=== PATIENT | male | born 1970 | race Caucasian/White ===

== ENCOUNTER 2017-05-02 23:14 | Emergency (ER) | payer MEDICARE, MEDICAID ==
[~2017-05-02] VITALS: Ht 182.9 cm; Wt 136.5 kg
[2017-05-02 23:30] VITALS: BP 121/77
== END 2017-05-03 00:30 | disposition left against medical advice (07) ==
LOC: ER 23:21
DX: F41.9 Anxiety disorder, unspecified (principal); Z53.21 Procedure and treatment not carried out due to patient leaving prior to being seen by health care provider

== ENCOUNTER 2023-06-21 20:18 | Inpatient (IN) | payer MEDICARE, MEDICAID ==
[~2023-06-21] VITALS: Ht 182.9 cm; Wt 145.1 kg
[2023-06-21] MEDS: SODIUM CHLORIDE 0.9% 1,000 ML IVB ONE (20:45)
[2023-06-21] MEDS ORDERED: METOCLOPRAMIDE HCL 5MG/ml INJ 2ml VIAL IM ONE (21:00)
[2023-06-21 21:34] LABS: INR 1.13 (0.9-1.15); Partial Thromboplastin Time 26.4 SEC (24.5-34.5); Prothrombin Time 11.8 sec (9.3-11.8)
[2023-06-21 21:35] LABS: Basophils # (auto) 0.1 10 ^3/uL (0-0.2); Eosinophils # (auto) 0.2 10 ^3/uL (0-0.8); Eosinophils % (auto) 1.2 % (0.0-7.0); Hematocrit 59.2 % (41.0-53.0); Hemoglobin 20.3 g/dL (13.5-17.5); Lymphocytes # (auto) 0.5 10 ^3/uL (0.4-5.4); Lymphocytes % (auto) 3.4 % (10.0-50.0); Mean Corpuscular Hemoglobin 32.4 pg (28.0-32.0); Mean Corpuscular Hgb Conc. 34.3 g/dL (32.0-36.0); Mean Corpuscular Volume 94.5 fL (80.0-100.0); Monocytes # (auto) 0.6 10 ^3/uL (0-1.3); Monocytes % (auto) 4.5 % (0.0-12.0); Neutrophils # (auto) 12.6 10 ^3/uL (1.6-8.6); Neutrophils % (auto) 89.9 % (37.0-80.0); Red Blood Cells 6.26 10^6/uL (4.5-5.90); Red Cell Distribution Width 14.8 % (11.8-14.3)
[2023-06-21 21:38] LABS: Alanine Aminotransferase 59 U/L (7-40); Alkaline Phosphatase 53 U/L (46-116); Anion Gap 15 (5-15); Aspartate Aminotransferase 39 U/L (13-40); BUN/Creatinine Ratio 6.2 (10.0-20.0); Blood Alcohol < 3.0 mg/dL (<10); Blood Urea Nitrogen 12 mg/dL (9-23); Carbon Dioxide 20 mmol/L (20-30); Chloride 101 mmol/L (98-107); Glucose 154 mg/dL (74-106); Potassium 4.1 mmol/L (3.5-5.1); Sodium 136 mmol/L (136-145)
[2023-06-21 21:39] LABS: Bilirubin, Total 1.6 mg/dL (0.2-1.0); Total Protein 9.1 g/dL (5.7-8.2)
[2023-06-21 21:45] LABS: Magnesium 2.1 mg/dL (1.6-2.6)
[2023-06-22] VITALS (66 sets, daily range): BP systolic 29–264; BP diastolic 20–250; PULSE 71–123; RESP 17–38; TEMP 96.1–104.7; O2SAT 86–100
[2023-06-22] MEDS: SODIUM CHLORIDE 0.9% 3,000 ML IV ONE (00:18)
[2023-06-22] MEDS: ACETAMINOPHEN 650 MG RECT SUPP PR ONE (00:29)
[2023-06-22] MEDS: LORazepam 2MG/ML-1ML VIAL IV ONE (00:29)
[2023-06-22] MEDS: cefTRIAXone 1GM/50ML D5W 50 ML IV ONE (00:29)
[2023-06-22] MEDS: MIDAZOLAM HCL 5 MG/ML-1ML VIAL ONE (00:49)
[2023-06-22] MEDS: AMIODARONE BOLUS KIT 100 ML IV ONE ×2 (00:49→00:50)
[2023-06-22] MEDS: HEPARIN SODIUM (PORCINE) 5000 UNITS/ML 1ML VIAL ONE ×5 (00:50→11:41)
[2023-06-22] MEDS: AMIODARONE 450mg/250ml AE 250 ML IV ONE (00:50)
[2023-06-22] MEDS: MIDAZOLAM HCL 5 MG/ML-1ML VIAL IV ONE (00:50)
[2023-06-22] MEDS: HEPARIN SODIUM (PORCINE) 5000 UNITS/ML 1ML VIAL IV ONE ×2 (00:51→01:11)
[2023-06-22 00:53] LABS: Lactic Acid w/Reflex 5.3 mmol/L (0.4-2.0)
[2023-06-22] MEDS: AMIODARONE 450mg/250ml AE 250 ML IV SCH ×2 (00:57→07:00)
[2023-06-22] MEDS: ETOMIDATE (2MG/ML) 20ML VIAL IV ONE ×2 (01:04→01:10)
[2023-06-22] MEDS: SUCCINYLCHOLINE CHLORIDE 20 MG/ML 10ML VIAL IV ONE ×2 (01:04→01:11)
[2023-06-22] MEDS: PROPOFOL 100 ML IV SCH (01:10)
[2023-06-22] MEDS: MAGNESIUM SULFATE 1GM/100ML 100 ML IV ONE (01:11)
[2023-06-22] MEDS: MAGNESIUM SULFATE 1GM/100ML 100 ML IV SCH (01:16)
[2023-06-22] MEDS: PROPOFOL 100 ML IV ONE ×2 (01:16→10:50)
[2023-06-22] MEDS: ASPirin 300 MG RECTAL SUPP PR ONE (01:17)
[2023-06-22] MEDS: METOPROLOL TARTRATE 1MG/1ML-5ML VIAL IV ONE ×5 (01:20→11:21)
[2023-06-22] MEDS: fentaNYL Drip 2500mCg/250mlNS 250 ML IV ONE (01:21)
[2023-06-22] MEDS: MIDAZOLAM DRIP 50 mg/50mL 50 ML IV ONE (01:22)
[2023-06-22] MEDS: MIDAZOLAM DRIP 50 mg/50mL 50 ML IV SCH ×2 (01:27→03:45)
[2023-06-22] MEDS: ROCURONIUM 10MG/ML 10ML VIAL IV ONE (01:27)
[2023-06-22] MEDS: ALBUMIN 25% 50 ML IV ONE (01:32)
[2023-06-22] MEDS: ANGIOMAX 250 MG VIAL IV ONE (01:38)
[2023-06-22] MEDS: VERAPAMIL 2.5MG/ML INJ 2ML VIAL IV ONE (01:39)
[2023-06-22] MEDS: MIDAZOLAM HCL 2MG/2ML 2ml VIAL (1mg/ml) ONE (01:39)
[2023-06-22] MEDS: fentaNYL CITRATE 100 MCG/2 ML VL ONE (01:39)
[2023-06-22] MEDS: SODIUM CHL 0.9% 50 ML ONE (01:40)
[2023-06-22] MEDS: LIDOCAINE 2%HCL (LOCAL ANESTH.) INJ 20ML MDV ONE ×2 (01:40→10:14)
[2023-06-22] MEDS: IODIXANOL 320MG/ML 100ML BTL IV ONE ×3 (01:43→10:14)
[2023-06-22] MEDS: NOREPINEPHRINE 8 MG/250ML KIT 250 ML IV ONE (02:08)
[2023-06-22] MEDS: SODIUM BICARB 8.4% 50Meq/50ml SYR Vial IV ONE (02:30)
[2023-06-22] MEDS: PHENYLEPHRINE HCL 10 MG/ML VL ONE (02:31)
[2023-06-22] MEDS: ATROPINE SULF 1 MG/10ml SYR ONE (02:34)
[2023-06-22] MEDS: NOREPINEPHRINE 8 MG/250ML KIT 250 ML IV SCH (03:20)
[2023-06-22] MEDS: TICAGRELOR 90 MG TAB ONE (03:28)
[2023-06-22] MEDS: DOBUTamine 1000MCG/ML 250 ML IV ONE (03:41)
[2023-06-22] MEDS: DOBUTamine 1000MCG/ML 250 ML IV SCH (03:42)
[2023-06-22] MEDS ORDERED: ONDANSETRON HCL 4 MG/2 ML VIAL IV PRN (03:45)
[2023-06-22] MEDS ORDERED: MORPHINE SULFATE INJ 2 MG/ml SYRG IV PRN (03:45)
[2023-06-22] MEDS ORDERED: NITROGLYCERIN 0.4 MG SL TAB SL PRN (03:45)
[2023-06-22] MEDS: FUROSEMIDE 40 MG/4 ML VIAL IV ONE (04:00)
[2023-06-22] MEDS: fentaNYL Drip 2500mCg/250mlNS 250 ML IV SCH (04:02)
[2023-06-22 04:11] LABS: Basophils # (auto) 0.1 10 ^3/uL (0-0.2); Basophils % (auto) 0.4 % (0.0-2.0); Eosinophils # (auto) 0 10 ^3/uL (0-0.8); Eosinophils % (auto) 0.1 % (0.0-7.0); Hematocrit 55.1 % (41.0-53.0); Hemoglobin 18.3 g/dL (13.5-17.5); Lymphocytes # (auto) 0.3 10 ^3/uL (0.4-5.4); Lymphocytes % (auto) 2.6 % (10.0-50.0); Mean Corpuscular Hemoglobin 32.4 pg (28.0-32.0); Mean Corpuscular Hgb Conc. 33.2 g/dL (32.0-36.0); Mean Corpuscular Volume 97.7 fL (80.0-100.0); Monocytes # (auto) 0.8 10 ^3/uL (0-1.3); Neutrophils # (auto) 11.4 10 ^3/uL (1.6-8.6); Neutrophils % (auto) 90.9 % (37.0-80.0); Nucleated Red Blood Cells % 0.3 %; Red Blood Cells 5.64 10^6/uL (4.5-5.90); Red Cell Distribution Width 14.9 % (11.8-14.3); White Blood Cell 12.6 10^3/uL (4.4-10.8)
[2023-06-22 04:28] LABS: Base Excess -7.8 mmol/L (-2.0-2.0)
[2023-06-22 04:39] LABS: Alanine Aminotransferase 77 U/L (7-40); Albumin 4.4 g/dL (3.2-4.8); Alkaline Phosphatase 39 U/L (46-116); Anion Gap 15 (5-15); Aspartate Aminotransferase 494 U/L (13-40); BUN/Creatinine Ratio 5.9 (10.0-20.0); Blood Urea Nitrogen 15 mg/dL (9-23); Calcium 9.6 mg/dL (8.7-10.4); Carbon Dioxide 17 mmol/L (20-30); Chloride 104 mmol/L (98-107); Glucose 160 mg/dL (74-106); Potassium 4.6 mmol/L (3.5-5.1); Sodium 136 mmol/L (136-145)
[2023-06-22 04:40] LABS: Bilirubin, Total 1.2 mg/dL (0.2-1.0); Total Protein 7.7 g/dL (5.7-8.2)
[2023-06-22 04:42] LABS: Amphetamine Screen, Urine Neg (NEGATIVE); Barbiturate Scree,Urine Neg (NEGATIVE); Benzodiazephine Screen, Urine Pos (NEGATIVE); Cocaine Screen, Urine Neg (NEGATIVE); Opiate Scree,Urine Neg (NEGATIVE)
[2023-06-22 04:43] LABS: Cannabinoid Screen, Urine Neg (NEGATIVE); Phencyclidine Screen, Urine Neg (NEGATIVE)
[2023-06-22 04:52] LABS: Urine Amorphous Crystal MOD /hpf (None Seen); Urine Bacteria MANY /hpf (None Seen); Urine Blood 3+ /uL (Negative); Urine Clarity Ex.Turbid (Clear); Urine Color Light-Orange (Yellow); Urine Mucus MANY (None Seen); Urine Protein, UAD 3+ (Negative); Urine Specific Gravity > 1.050 (1.001-1.035); Urine Urobilinogen Normal (Negative); Urine WBC 4 /hpf (0 - 3); Urine pH 5.5 (5.0-9.0)
[2023-06-22] MEDS: SODIUM CHLORIDE 0.9% 1,000 ML IV SCH (05:00)
[2023-06-22] MEDS: PANTOPRAZOLE 40 MG/10 ML VIAL INJ IV ONE (05:40)
[2023-06-22] MEDS: SODIUM CHLOR 0.9% PF (SALINE LOCK) 10ML VIAL/SYR IV SCH (06:00)
[2023-06-22] MEDS: ACETAMINOPHEN 325 MG TAB PO PRN (06:04)
[2023-06-22] MEDS: PHENYLEPHRINE INJ 80 MG in SODIUM CHL 0.9% 242 ML IV SCH (07:30)
[2023-06-22] MEDS: NOREPINEPHRINE BITARTRATE 32 MG in SODIUM CHL 0.9% 218 ML IV SCH (07:49)
[2023-06-22] MEDS: VASOPRESSIN 20 UNITS in SODIUM CHL 0.9% 99 ML IV SCH (09:30)
[2023-06-22] MEDS: VASOPRESSIN 20 UNIT/ML ONE (09:45)
[2023-06-22] MEDS: AMIODARONE HCL (50 MG/ ML) 3 ML VIAL IV ONE (11:08)
[2023-06-22 11:18] LABS: Lactic Acid w/Reflex 3.1 mmol/L (0.4-2.0)
[2023-06-22] MEDS: VANCOMYCIN 1GM/200ML 200 ML IV ONE ×2 (11:37→13:48)
[2023-06-22 12:21] LABS: Base Excess -11.4 mmol/L (-2.0-2.0)
[2023-06-22] MEDS: ACETAMINOPHEN IV 100 ML IV ONE (12:47)
[2023-06-22] MEDS: ACETAMINOPHEN IV 1000 MG/100ML (10MG/ML) IV ONE (12:54)
[2023-06-22] MEDS ORDERED: VANCOMYCIN PER PHARMACY 0 MG IV SCH (13:00)
[2023-06-22] MEDS: DOPamine 1600MCG/ML D5W 250 ML IV ONE (13:08)
[2023-06-22] MEDS ORDERED: ROCURONIUM 10MG/ML 10ML VIAL IV PRN (13:15)
[2023-06-22] MEDS: SODIUM BICARB 50mEq/50ml Vial 50 ML in SOD CHL 0.45% 1,000 ML IV SCH (13:42)
[2023-06-22] MEDS: DOPamine 1600MCG/ML D5W 250 ML IV SCH (14:00)
[2023-06-22 14:31] LABS: Protein, Urine 149.8 mg/dL (0.0-11.9)
[2023-06-22 14:33] LABS: Creatinine, Urine 179.86 mg/dL (30.0-125.0); Urine Protein/Creatinine Ratio 0.83
[2023-06-22 14:41] LABS: Base Excess -9.5 mmol/L (-2.0-2.0)
[2023-06-22 14:42] LABS: Basophils # (auto) 0.2 10 ^3/uL (0-0.2); Basophils % (auto) 1.5 % (0.0-2.0); Eosinophils # (auto) 0 10 ^3/uL (0-0.8); Eosinophils % (auto) 0.1 % (0.0-7.0); Hematocrit 48.6 % (41.0-53.0); Hemoglobin 16.8 g/dL (13.5-17.5); Lymphocytes # (auto) 0.9 10 ^3/uL (0.4-5.4); Lymphocytes % (auto) 6.8 % (10.0-50.0); Mean Corpuscular Hemoglobin 32.9 pg (28.0-32.0); Mean Corpuscular Hgb Conc. 34.6 g/dL (32.0-36.0); Mean Corpuscular Volume 95.2 fL (80.0-100.0); Monocytes # (auto) 1.5 10 ^3/uL (0-1.3); Monocytes % (auto) 12.3 % (0.0-12.0); Neutrophils % (auto) 79.3 % (37.0-80.0); Nucleated Red Blood Cells % 0.5 %; Red Blood Cells 5.11 10^6/uL (4.5-5.90); Red Cell Distribution Width 14.8 % (11.8-14.3); White Blood Cell 12.6 10^3/uL (4.4-10.8)
[2023-06-22 14:55] LABS: Hepatitis C Antibody Negative (Negative)
[2023-06-22] MEDS: D5W 5% IV SCH (14:57)
[2023-06-22] MEDS: SODIUM BICARB IV SCH (14:57)
[2023-06-22] MEDS: MEROPENEM 1GM IVPB 50 ML IV ONE (15:31)
[2023-06-22] MEDS: SODIUM CHLORIDE 0.9% 500 ML IV ONE (16:45)
[2023-06-22 16:46] LABS: INR 1.14 (0.9-1.15); Partial Thromboplastin Time 29.9 SEC (24.5-34.5); Prothrombin Time 11.9 sec (9.3-11.8)
[2023-06-22 17:10] LABS: Alanine Aminotransferase 179 U/L (7-40); Albumin 4.5 g/dL (3.2-4.8); Aspartate Aminotransferase 424 U/L (13-40); BUN/Creatinine Ratio 7.9 (10.0-20.0); Bilirubin, Total 2.4 mg/dL (0.2-1.0); Carbon Dioxide 20 mmol/L (20-30); Total Protein 6.7 g/dL (5.7-8.2)
[2023-06-22] MEDS: HEPARIN DRIP/D5W 100UNITS/ML 250 ML IV SCH (17:30)
[2023-06-22 17:38] LABS: Alkaline Phosphatase 19 U/L (46-116); Anion Gap 13 (5-15); Calcium 7.8 mg/dL (8.5-10.1); Chloride 102 mmol/L (98-107); Glucose 165 mg/dL (74-106); Sodium 135 mmol/L (136-145)
[2023-06-22 17:40] LABS: Blood Urea Nitrogen 29 mg/dL (9-23)
[2023-06-22 17:41] LABS: Potassium 4.5 mmol/L (3.5-5.1)
[2023-06-22] MEDS ORDERED: ATROPINE SULF 1 MG/10ml SYR IM ONE (19:48)
[2023-06-22] MEDS ORDERED: cefTRIAXone 1GM/50ML D5W 50 ML IV SCH (21:00)
[2023-06-22] MEDS ORDERED: MEROPENEM 1GM IVPB 50 ML IV SCH (22:00)
[2023-06-23] MEDS ORDERED: VANCOMYCIN 1GM/200ML 200 ML IV SCH (05:00)
[2023-06-25 09:23] LABS: Hepatitis B Surface Antigen Negative (Negative)
== END 2023-06-22 19:40 | disposition short-term general hospital (02) | DRG 215 ==
LOC: EDBD 20:18 → ER 20:18 → TELE 06-22 03:39 → ICU WEST 06-22 03:50
PROVIDERS: ADMIT Internal Medicine; ATTEND Internal Medicine
PROC: 5A12012 Performance of Cardiac Output, Single, Manual (ICD-10-PCS; principal; 2023-06-22)
PROC: 02HV33Z Insertion of Infusion Device into Superior Vena Cava, Percutaneous Approach (ICD-10-PCS; 2023-06-22)
PROC: 027035Z Dilation of Coronary Artery, One Artery with Two Drug-eluting Intraluminal Devices, Percutaneous Approach (ICD-10-PCS; 2023-06-22)
PROC: 02HA3RZ Insertion of Short-term External Heart Assist System into Heart, Percutaneous Approach (ICD-10-PCS; 2023-06-22)
PROC: 5A0221D Assistance with Cardiac Output using Impeller Pump, Continuous (ICD-10-PCS; 2023-06-22)
PROC: B240ZZ3 Ultrasonography of Single Coronary Artery, Intravascular (ICD-10-PCS; 2023-06-22)
PROC: 4A023N7 Measurement of Cardiac Sampling and Pressure, Left Heart, Percutaneous Approach (ICD-10-PCS; 2023-06-22)
PROC: B211YZZ Fluoroscopy of Multiple Coronary Arteries using Other Contrast (ICD-10-PCS; 2023-06-22)
PROC: B215YZZ Fluoroscopy of Left Heart using Other Contrast (ICD-10-PCS; 2023-06-22)
PROC: 02HQ32Z Insertion of Monitoring Device into Right Pulmonary Artery, Percutaneous Approach (ICD-10-PCS; 2023-06-22)
PROC: 5A1223Z Performance of Cardiac Pacing, Continuous (ICD-10-PCS; 2023-06-22)
PROC: 03HY32Z Insertion of Monitoring Device into Upper Artery, Percutaneous Approach (ICD-10-PCS; 2023-06-22)
PROC: 5A1935Z Respiratory Ventilation, Less than 24 Consecutive Hours (ICD-10-PCS; 2023-06-22)
PROC: 0BH17EZ Insertion of Endotracheal Airway into Trachea, Via Natural or Artificial Opening (ICD-10-PCS; 2023-06-22)
PROC: 5A2204Z Restoration of Cardiac Rhythm, Single (ICD-10-PCS; 2023-06-22)
DX: I21.09 ST elevation (STEMI) myocardial infarction involving other coronary artery of anterior wall (principal); A41.9 Sepsis, unspecified organism; G93.41 Metabolic encephalopathy; R65.21 Severe sepsis with septic shock; R57.0 Cardiogenic shock; J96.01 Acute respiratory failure with hypoxia; N17.0 Acute kidney failure with tubular necrosis; I44.2 Atrioventricular block, complete; I47.20 Ventricular tachycardia, unspecified; Z68.41 Body mass index [BMI] 40.0-44.9, adult; A09 Infectious gastroenteritis and colitis, unspecified; E86.0 Dehydration; R73.9 Hyperglycemia, unspecified; E66.01 Morbid (severe) obesity due to excess calories; K76.0 Fatty (change of) liver, not elsewhere classified; E83.52 Hypercalcemia; I25.10 Atherosclerotic heart disease of native coronary artery without angina pectoris; I12.9 Hypertensive chronic kidney disease with stage 1 through stage 4 chronic kidney disease, or unspecified chronic kidney disease; E78.5 Hyperlipidemia, unspecified; N18.9 Chronic kidney disease, unspecified; E80.6 Other disorders of bilirubin metabolism; D75.1 Secondary polycythemia; Z88.6 Allergy status to analgesic agent; Z82.49 Family history of ischemic heart disease and other diseases of the circulatory system; Z80.1 Family history of malignant neoplasm of trachea, bronchus and lung; Z86.74 Personal history of sudden cardiac arrest; Z95.0 Presence of cardiac pacemaker
CPT/HCPCS: 33990; 36415; 36600; 71045; 76775; 80053; 80061; 80307; 80320; 81001; 82306; 82550; 82570; 82805; 83605; 83690; 83735; 83880; 83970; 84100; 84156; 84300; 84443; 84484; 85025; 85610; 85730; 86803; 87040; 87070; 87081; 87086; 87205; 87340; 92941; 92950; 92978; 93005; 93458; 94002; 94003; 99152; C1751; C9113; G0378; J0131; J0330; J2185; J2250; J2704; J3490; Q9967

== ENCOUNTER 2023-10-20 14:28 | Inpatient (IN) | payer MEDICARE, MEDICAID ==
[~2023-10-20] VITALS: Ht 182.9 cm; Wt 111.7 kg
[2023-10-20] MEDS: SODIUM CHLORIDE 0.9% 1,000 ML IV ONE (14:45)
[2023-10-20 15:11] LABS: Basophils # (auto) 0.1 10 ^3/uL (0-0.2); Basophils % (auto) 1.1 % (0.0-2.0); Eosinophils # (auto) 0 10 ^3/uL (0-0.8); Eosinophils % (auto) 0.3 % (0.0-7.0); Hematocrit 33.3 % (41.0-53.0); Hemoglobin 10.8 g/dL (13.5-17.5); Lymphocytes # (auto) 0.9 10 ^3/uL (0.4-5.4); Lymphocytes % (auto) 17.2 % (10.0-50.0); Mean Corpuscular Hemoglobin 27.8 pg (28.0-32.0); Mean Corpuscular Hgb Conc. 32.5 g/dL (32.0-36.0); Mean Corpuscular Volume 85.4 fL (80.0-100.0); Monocytes # (auto) 0.6 10 ^3/uL (0-1.3); Monocytes % (auto) 11.4 % (0.0-12.0); Neutrophils # (auto) 3.8 10 ^3/uL (1.6-8.6); Red Cell Distribution Width 17.4 % (11.8-14.3); White Blood Cell 5.4 10^3/uL (4.4-10.8)
[2023-10-20 15:48] LABS: Alanine Aminotransferase 35 U/L (7-40); Albumin 4.1 g/dL (3.2-4.8); Alkaline Phosphatase 81 U/L (46-116); Anion Gap 13 (5-15); Aspartate Aminotransferase 30 U/L (13-40); BUN/Creatinine Ratio 6.1 (10.0-20.0); Bilirubin, Total 2.3 mg/dL (0.2-1.0); Blood Urea Nitrogen 12 mg/dL (9-23); Calcium 9.7 mg/dL (8.7-10.4); Carbon Dioxide 26 mmol/L (20-30); Chloride 101 mmol/L (98-107); Glucose 100 mg/dL (74-106); Sodium 140 mmol/L (136-145); Total Protein 6.8 g/dL (5.7-8.2)
[2023-10-20] MEDS ORDERED: ONDANSETRON HCL 4 MG/2 ML VIAL IV PRN (17:30)
[2023-10-20] MEDS ORDERED: HYDROcodone-ACET 5/325MG TAB PO PRN (17:30)
[2023-10-20] MEDS ORDERED: DOCUSATE SOD 100 MG CAP PO PRN (17:30)
[2023-10-20] MEDS ORDERED: hydrALAZINE HCL 20 MG/ML VL IV PRN (17:30)
[2023-10-20] MEDS ORDERED: ACETAMINOPHEN 325 MG TAB PO PRN (17:30)
[2023-10-20] MEDS: POTASSIUM CHL 20 Meq TABLET PO ONE (17:44)
[2023-10-20] MEDS ORDERED: NITROGLYCERIN 0.4 MG SL TAB SL PRN (20:00)
[2023-10-20] MEDS ORDERED: MORPHINE SULFATE INJ 2 MG/ml SYRG IV PRN (20:00)
[2023-10-20 20:54] VITALS: PULSE 91; RESP 18; O2SAT 97
[2023-10-20] MEDS: SODIUM CHLOR 0.9% PF (SALINE LOCK) 10ML VIAL/SYR IV SCH (21:50)
[2023-10-20] MEDS: ATORVASTATIN 20 MG TAB PO SCH (22:00)
[2023-10-20] MEDS ORDERED: TICA90TA PO (22:28)
[2023-10-20] MEDS ORDERED: FURO40TA4 PO (22:32)
[2023-10-20] MEDS ORDERED: HYDR-3682 PO (22:32)
[2023-10-20] MEDS ORDERED: MECL-90 PO (22:32)
[2023-10-20] MEDS ORDERED: AMIO200T33 PO (22:32)
[2023-10-20] MEDS ORDERED: PANT40TA2 PO (22:32)
[2023-10-20] MEDS ORDERED: ASPI-498 OR (22:32)
[2023-10-20] MEDS ORDERED: PANT1INJ3 IV (22:32)
[2023-10-20] MEDS: AMIODARONE HCL 200 MG TAB PO SCH (23:50)
[2023-10-21] VITALS (8 sets, daily range): BP systolic 97–107; BP diastolic 67–81; PULSE 89–91; RESP 16–20; TEMP 98.1–98.8; O2SAT 96–99
[2023-10-21] MEDS: MECLIZINE HCL 25 MG TAB PO PRN (00:46)
[2023-10-21] MEDS: PANTOPRAZOLE 40 MG TAB PO SCH (06:10)
[2023-10-21 06:30] LABS: Urine Bacteria None Seen /hpf (None Seen)
[2023-10-21 07:26] LABS: Urine Blood Negative /uL (Negative); Urine Clarity Clear (Clear); Urine Color Yellow (Yellow); Urine Protein, UAD TRACE (Negative); Urine Specific Gravity 1.018 (1.001-1.035); Urine Urobilinogen 3 mg/dL (Negative); Urine WBC 4 /hpf (0 - 3)
[2023-10-21 07:37] LABS: Basophils # (auto) 0 10 ^3/uL (0-0.2); Basophils % (auto) 0.7 % (0.0-2.0); Eosinophils # (auto) 0 10 ^3/uL (0-0.8); Eosinophils % (auto) 0.3 % (0.0-7.0); Hematocrit 29.6 % (41.0-53.0); Hemoglobin 9.5 g/dL (13.5-17.5); Lymphocytes # (auto) 0.8 10 ^3/uL (0.4-5.4); Lymphocytes % (auto) 16.4 % (10.0-50.0); Mean Corpuscular Hemoglobin 27.9 pg (28.0-32.0); Mean Corpuscular Hgb Conc. 32.1 g/dL (32.0-36.0); Monocytes # (auto) 0.6 10 ^3/uL (0-1.3); Monocytes % (auto) 12.3 % (0.0-12.0); Neutrophils # (auto) 3.6 10 ^3/uL (1.6-8.6); Neutrophils % (auto) 70.3 % (37.0-80.0); Nucleated Red Blood Cells % 0.1 %; Red Cell Distribution Width 17.5 % (11.8-14.3)
[2023-10-21 07:46] LABS: Alanine Aminotransferase 23 U/L (7-40); Alkaline Phosphatase 70 U/L (46-116); Anion Gap 5 (5-15); BUN/Creatinine Ratio 3.8 (10.0-20.0); Blood Urea Nitrogen 8 mg/dL (9-23); Calcium 9.7 mg/dL (8.7-10.4); Carbon Dioxide 30 mmol/L (20-30); Chloride 104 mmol/L (98-107); Glucose 86 mg/dL (74-106); Potassium 3.2 mmol/L (3.5-5.1); Sodium 139 mmol/L (136-145)
[2023-10-21 07:47] LABS: Albumin 3.7 g/dL (3.2-4.8); Aspartate Aminotransferase 21 U/L (13-40); Total Protein 6.4 g/dL (5.7-8.2)
[2023-10-21] MEDS: TICAGRELOR 90 MG TAB PO SCH (09:41)
[2023-10-21] MEDS: FUROSEMIDE 40 MG TAB PO SCH (09:41)
[2023-10-21] MEDS: CLOPIDOGREL BISULFATE 75 MG TAB PO SCH (10:00)
[2023-10-21] MEDS: ASPirin 81 mg TAB PO ONE (13:15)
[2023-10-21] MEDS: hydrOXYzine 25 MG TAB or CAP PO PRN (13:16)
[2023-10-21 15:15] LABS: Magnesium 2.3 mg/dL (1.6-2.6)
[2023-10-21 15:17] LABS: Phosphorus 4.5 mg/dL (2.4-5.1)
[2023-10-21 15:18] LABS: INR 1.14 (0.9-1.15); Partial Thromboplastin Time 26.2 SEC (24.5-34.5)
[2023-10-21] MEDS: POTASSIUM CHL 20MEQ/100ML 100 ML IV SCH (15:33)
[2023-10-21 20:21] LABS: Sodium Urine 30 mmol/L (40-220)
[2023-10-21 20:27] LABS: Protein, Urine 34.8 mg/dL (0.0-11.9)
[2023-10-21 20:28] LABS: Amphetamine Screen, Urine Neg (NEGATIVE)
[2023-10-21 20:29] LABS: Barbiturate Scree,Urine Neg (NEGATIVE); Benzodiazephine Screen, Urine Neg (NEGATIVE); Cannabinoid Screen, Urine Neg (NEGATIVE); Cocaine Screen, Urine Neg (NEGATIVE); Opiate Scree,Urine Neg (NEGATIVE); Phencyclidine Screen, Urine Neg (NEGATIVE)
[2023-10-21 20:38] LABS: Creatinine, Urine 232.72 mg/dL (30.0-125.0)
[2023-10-21] MEDS: ATORVASTATIN 20 MG TAB PO SCH (21:39)
[2023-10-22] VITALS (7 sets, daily range): BP systolic 98–117; BP diastolic 63–71; PULSE 88–89; RESP 18–20; TEMP 97.8–98.7; O2SAT 95–99
[2023-10-22] MEDS: ASPirin 81 mg TAB PO SCH (11:25)
[2023-10-22 12:40] LABS: Basophils # (auto) 0 10 ^3/uL (0-0.2); Basophils % (auto) 0.7 % (0.0-2.0); Eosinophils # (auto) 0 10 ^3/uL (0-0.8); Eosinophils % (auto) 0.3 % (0.0-7.0); Hematocrit 29.7 % (41.0-53.0); Hemoglobin 9.8 g/dL (13.5-17.5); Lymphocytes # (auto) 0.8 10 ^3/uL (0.4-5.4); Lymphocytes % (auto) 14.2 % (10.0-50.0); Mean Corpuscular Hemoglobin 28.4 pg (28.0-32.0); Mean Corpuscular Hgb Conc. 32.9 g/dL (32.0-36.0); Mean Corpuscular Volume 86.5 fL (80.0-100.0); Monocytes # (auto) 0.6 10 ^3/uL (0-1.3); Monocytes % (auto) 10.5 % (0.0-12.0); Neutrophils # (auto) 4.1 10 ^3/uL (1.6-8.6); Neutrophils % (auto) 74.3 % (37.0-80.0); Red Blood Cells 3.44 10^6/uL (4.5-5.90); Red Cell Distribution Width 17.6 % (11.8-14.3); White Blood Cell 5.5 10^3/uL (4.4-10.8)
[2023-10-22 13:02] LABS: Alanine Aminotransferase 26 U/L (7-40); Albumin 4.1 g/dL (3.2-4.8); Alkaline Phosphatase 74 U/L (46-116); Anion Gap 6 (5-15); Aspartate Aminotransferase 22 U/L (13-40); Bilirubin, Total 1.9 mg/dL (0.2-1.0); Blood Urea Nitrogen 15 mg/dL (9-23); Calcium 9.9 mg/dL (8.7-10.4); Carbon Dioxide 31 mmol/L (20-30); Chloride 104 mmol/L (98-107); Glucose 96 mg/dL (74-106); Potassium 3.9 mmol/L (3.5-5.1); Sodium 141 mmol/L (136-145); Total Protein 6.8 g/dL (5.7-8.2)
[2023-10-23 05:00] VITALS: BP 107/73; PULSE 89; RESP 18; TEMP 97.6; O2SAT 96
[2023-10-23 08:00] VITALS: BP 105/67; PULSE 89; PULSE 91; RESP 18; TEMP 98.3; O2SAT 97
[2023-10-23] MEDS: SODIUM CHL 0.9% 1000 ML BAG XX ONE (08:41)
[2023-10-23 12:00] VITALS: BP 113/82; PULSE 89; RESP 18; TEMP 98; O2SAT 98
[2023-10-23] MEDS: MAGNESIUM OXIDE 400 MG TAB PO SCH (12:00)
[2023-10-23 16:00] VITALS: BP 106/70; PULSE 89; RESP 18; TEMP 98.3; O2SAT 97
[2023-10-23 20:00] VITALS: PULSE 89
[2023-10-23 21:00] VITALS: BP 99/70; PULSE 89; RESP 17; TEMP 98.6; O2SAT 98
[2023-10-23] MEDS: METOPROLOL TARTRATE 25 MG TAB PO SCH (21:46)
[2023-10-24] VITALS (9 sets, daily range): BP systolic 95–109; BP diastolic 63–75; PULSE 82–89; RESP 16–18; TEMP 97.8–98.7; O2SAT 97–98
[2023-10-24 05:59] LABS: Basophils # (auto) 0.1 10 ^3/uL (0-0.2); Basophils % (auto) 0.9 % (0.0-2.0); Eosinophils # (auto) 0 10 ^3/uL (0-0.8); Eosinophils % (auto) 0.5 % (0.0-7.0); Hematocrit 30.4 % (41.0-53.0); Hemoglobin 9.9 g/dL (13.5-17.5); Lymphocytes # (auto) 0.9 10 ^3/uL (0.4-5.4); Lymphocytes % (auto) 15.7 % (10.0-50.0); Mean Corpuscular Hgb Conc. 32.6 g/dL (32.0-36.0); Mean Corpuscular Volume 85.8 fL (80.0-100.0); Monocytes # (auto) 0.7 10 ^3/uL (0-1.3); Monocytes % (auto) 11.8 % (0.0-12.0); Neutrophils # (auto) 4.1 10 ^3/uL (1.6-8.6); Neutrophils % (auto) 71.1 % (37.0-80.0); Nucleated Red Blood Cells % 0.1 %; Red Blood Cells 3.54 10^6/uL (4.5-5.90); Red Cell Distribution Width 17.5 % (11.8-14.3); White Blood Cell 5.7 10^3/uL (4.4-10.8)
[2023-10-24 06:19] LABS: Anion Gap 4 (5-15); Carbon Dioxide 30 mmol/L (20-30); Chloride 104 mmol/L (98-107); Potassium 3.6 mmol/L (3.5-5.1); Sodium 138 mmol/L (136-145)
[2023-10-24 06:25] LABS: BUN/Creatinine Ratio 6.1 (10.0-20.0); Blood Urea Nitrogen 12 mg/dL (9-23); Glucose 86 mg/dL (74-106)
[2023-10-24 07:57] LABS: Protein, Urine 46.8 mg/dL (0.0-11.9)
[2023-10-24 08:08] LABS: Creatinine, Urine 251.13 mg/dL (30.0-125.0); Urine Protein/Creatinine Ratio 0.19
[2023-10-24 08:11] LABS: COVID19 ANTIGEN SOFIA FIA NEGATIVE (NEGATIVE)
[2023-10-24] MEDS: POTASSIUM EFFERVESENT TAB 25 MEQ PO ONE (16:40)
[2023-10-24] MEDS: ATORVASTATIN 20 MG TAB PO SCH (20:04)
== END 2023-10-24 22:55 | disposition short-term general hospital (02) | DRG 314 ==
LOC: EDBD 14:28 → ER 14:28 → TELE 19:55 → TELE-E-ADS 10-21 08:57
PROVIDERS: ADMIT Nurse Practitioner Family; ATTEND Family Medicine
PROC: 5A1D70Z Performance of Urinary Filtration, Intermittent, Less than 6 Hours Per Day (ICD-10-PCS; principal; 2023-10-23)
DX: T82.897A Other specified complication of cardiac prosthetic devices, implants and grafts, initial encounter (principal); I50.23 Acute on chronic systolic (congestive) heart failure; N18.6 End stage renal disease; N17.9 Acute kidney failure, unspecified; I13.2 Hypertensive heart and chronic kidney disease with heart failure and with stage 5 chronic kidney disease, or end stage renal disease; I47.20 Ventricular tachycardia, unspecified; E87.6 Hypokalemia; D63.1 Anemia in chronic kidney disease; E66.9 Obesity, unspecified; E78.00 Pure hypercholesterolemia, unspecified; F41.9 Anxiety disorder, unspecified; I25.10 Atherosclerotic heart disease of native coronary artery without angina pectoris; K21.9 Gastro-esophageal reflux disease without esophagitis; K76.9 Liver disease, unspecified; Z20.822 Contact with and (suspected) exposure to COVID-19; Y83.8 Other surgical procedures as the cause of abnormal reaction of the patient, or of later complication, without mention of misadventure at the time of the procedure; I25.5 Ischemic cardiomyopathy; I34.0 Nonrheumatic mitral (valve) insufficiency; I25.2 Old myocardial infarction; Z95.810 Presence of automatic (implantable) cardiac defibrillator; Z88.6 Allergy status to analgesic agent; Z98.61 Coronary angioplasty status; Z82.3 Family history of stroke; Z87.891 Personal history of nicotine dependence; Z82.49 Family history of ischemic heart disease and other diseases of the circulatory system; Z80.1 Family history of malignant neoplasm of trachea, bronchus and lung; Z75.1 Person awaiting admission to adequate facility elsewhere; Z99.2 Dependence on renal dialysis; Z68.33 Body mass index [BMI] 33.0-33.9, adult; Y92.89 Other specified places as the place of occurrence of the external cause
CPT/HCPCS: 36415; 71045; 76775; 80048; 80053; 80061; 80307; 81001; 82043; 82306; 82570; 82607; 83036; 83605; 83735; 83880; 83930; 83935; 84100; 84133; 84156; 84300; 84443; 84484; 85025; 85610; 85730; 87340; 87426; 90935; 93005; 93306; 96360; G0378; J1642; J3480